=== PATIENT | male | born 1980 | race Caucasian/White ===

== ENCOUNTER 2017-01-31 21:23 | Emergency (ER) | payer OTHER ==
[2017-01-31 21:27] VITALS: TEMP 36.9; Ht 175.3 cm
[2017-01-31 22:04] VITALS: BP 148/78; PULSE 91; O2SAT 99
--- NOTE | 2017-01-31 22:05 | EMERGENCY ROOM VISIT NOTE ---
History First contact with patient: 21:26 Chief Complaint: ALCOHOL OVERDOSE Stated Complaint: ETOH History of Present Illness The patient is a 37 year old male who presents to the Emergency Room with complaints of alcohol intoxication. Patient states he's been drinking alcohol today and fell asleep on his girlfriend at the movie theater. His girlfriend left him as she was sick and tired of his alcoholism. Police were notified and police summoned EMS. Patient states he would like to call a friend to come pick him up. Patient denies drugs, fall, chest pain, dyspnea or any other medical complaints. PBT was 0.285 Review of Systems See HPI for pertinent positives & negatives. A total of 10 systems reviewed and were otherwise negative. Past Medical/Surgical History none Social History Alcohol Use: occasionally Drug Use: none Marital Status: single Occupation Status: employed Current/Historical Medications No Active Prescriptions or Reported Meds Physical Exam Vital Signs Date Time Temp Pulse Resp B/P (MAP) Pulse Ox O2 Delivery O2 Flow Rate FiO2 01/31/17 21:27 36.9 97 16 155/85 95 Room Air Physical Exam PHYSICAL EXAM: VITALS: Vitals are noted on the nurse's note and reviewed by myself. Vital signs stable. GENERAL: White male with EtOH odor, in no acute distress, nondiaphoretic, well- developed well-nourished. The patient is visibly intoxicated. SKIN: The skin was without obvious lacerations, abrasions, or rashes. There is no tenting of the skin. Capillary reflex less than 2 seconds. HEENT: Normocephalic, atraumatic. PERRLA. EOMI. Conjunctiva with mild injection without icterus. Tympanic membranes without erythema or effusion bilaterally no hemotympanum. External auditory canals are clear. Nares patent bilaterally. No epistaxis. Oropharynx without erythema or exudate. Uvula midline. Oral mucosal moist. No lymphadenopathy. Neck is supple without cervical spine tenderness. HEART: Regular rate and rhythm without murmurs gallops or rubs. Peripheral pulses 2+. LUNGS: Clear to auscultation bilaterally without wheezes, rales or rhonchi. ABDOMEN: Positive bowel sounds x 4. Normal tympanic percussion. Soft, nontender, without masses or organomegaly. MUSCULOSKELETAL: Gross motor function of the upper and lower extremities intact. The patient has a staggering gait. NEUROLOGIC: The patient is visibly intoxicated. Once they were more sober they were alert and oriented to person place and time. Medical Decision & Procedures ED Course Prior records/ancillary studies reviewed. Triage Nursing notes reviewed. Additional history obtained from EMS. The patient's history was concerning for altered mental status and a possible alcohol overdose. Differential diagnosis: Etiologies such as alcohol intoxication, toxicologic, infection, hypoglycemia, electrolyte abnormalities, cardiac sources, intracerebral event, neurologic, as well as others were entertained. Physical examination: As above. The patient is clinically intoxicated. no trauma noted. ER treatment provided: Monitoring Aspiration precautions The patient was frequently reassessed. Diagnostic interpretation by me: Cardiac monitoring did not reveal any evidence of dysrhythmia. PBT of 0.285 The patient's history was reviewed once they were more coherent and their intoxication cleared. The patient states they have been in good health recently and had no medical complaints. The patient admitted to consuming alcohol. No additional concerning findings were noted. The patient complained of no symptoms to suggest assault. Patient's friend is willing to care for him throughout the night. I felt it was reasonable for him to be discharged home in his care as patient was ambulating and speaking without difficulties. He was not staggering. He was not slurring his words. This appears to be consistent with an isolated overdose of alcohol. By the evaluation outlined above emergent etiologies such as trauma, infection, hypoglycemia, electrolyte abnormalities, cardiac sources, intracerebral event, neurologic,as well as others were deemed relatively unlikely. The patient was informed about the findings as listed above. The patient was counseled on the dangers of excessive alcohol use. I gave my usual and customary discussion regarding this issue. All questions were answered and the patient was pleased with the treatment. Return instructions were outlined and the patient was discharged in stable condition once their mental status improved and a safe destination was confirmed. Outpatient prescription management: None Referral: The patient was referred back to their primary care physician for follow-up in 2 to 3 days for a recheck of their current condition. Case reviewed with my Attending Medical Decision As above Medication Reconcilliation Current Medication List: was personally reviewed by me Blood Pressure Screening Patient's blood pressure: Normal blood pressure Impression Primary Impression: Alcohol abuse Departure Information Dispostion Home / Self-Care Condition GOOD Prescriptions No Active Prescriptions or Reported Meds Patient Instructions My [facility] Additional Instructions Keep well-hydrated. Tylenol every 6 hours as needed for pain (Maximum 3000 mg Tylenol in 24 hr period). Follow up with family doctor and/or health services as needed. No driving for the next 24 hours. Recommend no alcohol for the next 48 hours and avoid binge drinking in the future. Return to ER sooner for chest pain, abdominal pain, worsening signs or symptoms or as needed.
== END 2017-01-31 22:05 | disposition home or self-care (01) ==
LOC: EDBD 21:23 → C.EDA 21:24
DX: F10.920 Alcohol use, unspecified with intoxication, uncomplicated (principal)